=== PATIENT | male | born 1980 | race Caucasian/White ===

== ENCOUNTER → 2016-06-18 | Outpatient (CLI) | payer BC ==
[2016-06-18 12:01] LABS: CHLORIDE,CL 106 mmol/L (98-110); SODIUM,NA 140 mmol/L (136-146)
== END ==
LOC: MW.LAB 11:07
PROVIDERS: ATTEND Internal Medicine Rheumatology
DX: L40.59 Other psoriatic arthropathy (principal)
CPT/HCPCS: 36415; 80053; 85027; 85652; 86140

== ENCOUNTER 2016-07-06 09:52 | Emergency (ER) | payer BC ==
--- NOTE | 2016-07-06 11:03 | CT ---
EXAMINATION: CT lumbar spine without contrast HISTORY: Pain COMPARISON: MRI dated 08/12/2009 TECHNIQUE: Axial CT images obtained through the lumbar spine without contrast. FINDINGS: The lumbar spinal alignment is normal. The vertebral body heights appear maintained. There is minimal disc space narrowing at L5-S1. 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 The SI joints are symmetric. Bone mineralization is normal. There is likely a small diffuse disc bu lge with facet and ligamentum flavum hypertrophy noted at L4-L5 resulting in at least mild spinal ca nal stenosis. The visualized retroperitoneal structures appear normal. IMPRESSION: 1. Mild degenerative changes without acute findings.
--- NOTE | 2016-07-06 11:12 | EDM.PDOC ---
ED HPI GENERAL MEDICAL PROBLEM - General Chief Complaint: Back Pain or Injury Stated Complaint: BACK Time Seen by Provider: 07/06/16 10:20 Source of Information: Reports: Patient History Limitations: Reports: No Limitations - History of Present Illness INITIAL COMMENTS - FREE TEXT/NARRATIVE: History of present illness: [36-year-old male presenting with complaints of low back pain. Indicates history of injury in the lumbar spine with subsequent injections the latest and for several years but now he has had a flare today. Patient denies incontinence of bladder or bowel. Review of systems: As per history of present illness and below otherwise all systems reviewed and negative. Past medical history: As per history of present illness and as reviewed below otherwise noncontributory. Surgical history: As per history of present illness and as reviewed below otherwise noncontributory. Social history: No reported history of drug or alcohol abuse. Family history: As per history of present illness and as reviewed below otherwise noncontributory. Physical exam: HEENT: Atraumatic, normocephalic, pupils reactive, negative for conjunctival pallor or scleral icterus, mucous membranes moist, throat clear, neck supple, nontender, trachea midline. Lungs: Clear to auscultation, breath sounds equal bilaterally, chest nontender. Heart: S1S2, regular, negative for clicks, rubs, or JVD. Abdomen: Soft, nondistended, nontender. Negative for masses or hepatosplenomegaly. Negative for costovertebral tenderness. Pelvis: Stable nontender. Genitourinary: Deferred. Rectal: Deferred. Extremities: Atraumatic, negative for cords or calf pain. Neurovascular unremarkable. Neuro: Awake, alert, oriented. Cranial nerves II through XII unremarkable. Cerebellum unremarkable. Motor and sensory unremarkable throughout. Exam nonfocal. Global assessment is benign save his subjective complaint. Patient indicates that his pain is a 2/10 while lying. Diagnostics: [CT of the lumbar spine] Therapeutics: [] Impression: [Back pain] Plan: [norflex, medrol dose pack] Definitive disposition and diagnosis as appropriate pending reevaluation and review of above. low back pain Pain Score (Numeric/FACES): 10 - Related Data Allergies Allergy/AdvReac Type Severity Reaction Status Date / Time No Known Allergies Allergy Verified 07/06/16 09:59 Home Meds: Home Meds Folic Acid 0 mg PO DAILY 07/06/16 [History] Meloxicam 7.5 mg PO BID #30 tablet 07/06/16 [Rx] Methotrexate 0 mg PO WEEKLY 07/06/16 [History] Orphenadrine [Norflex] 100 mg PO BID #28 tab.er 07/06/16 [Rx] methylPREDNISolone [Medrol] 4 mg PO DAILY #21 tab.ds.pk 07/06/16 [Rx] Past Medical History - Past Health History Medical/Surgical History: Denies Medical/Surgical History HEENT History: Reports: Impaired Vision Other HEENT History: wears eyeglasses Musculoskeletal History: Reports: RA Endocrine/Metabolic History: Reports: Obesity/BMI 30+ - Past Surgical History GI Surgical History: Reports: Appendectomy Social & Family History - Family History Family Medical History: Noncontributory - Tobacco Use Smoking Status *Q: Never Smoker Second Hand Smoke Exposure: No - Caffeine Use Caffeine Use: Reports: None - Recreational Drug Use Recreational Drug Use: No ED ROS GENERAL - Review of Systems Review Of Systems: See Below (See history of present illness) ED EXAM,LOWER BACK PAIN/INJURY - Physical Exam Exam: See Below (See history of present illness) Course - Vital Signs Last Recorded V/S: Last Vital Signs Temp 36.3 C 07/06/16 10:00 Pulse 80 07/06/16 10:00 Resp 18 07/06/16 10:00 BP 139/83 07/06/16 10:00 Pulse Ox 98 07/06/16 10:00 Departure - Departure Time of Disposition: 11:10 Disposition: Home, Self-Care 01 Condition: good Clinical Impression: Lumbar back pain - Discharge Information Prescriptions: Meloxicam 7.5 mg PO BID #30 tablet Orphenadrine [Norflex] 100 mg PO BID #28 tab.er methylPREDNISolone [Medrol] 4 mg PO DAILY #21 tab.ds.pk Forms: ED Department Discharge Additional Instructions: The following information is given to patients seen in the emergency department who are being discharged to home. This information is to outline your options for follow-up care. We provide all patients seen in our emergency department with a follow-up referral. The need for follow-up, as well as the timing and circumstances, are variable depending upon the specifics of your emergency department visit. If you don't have a primary care physician on staff, we will provide you with a referral. We always advise you to contact your personal physician following an emergency department visit to inform them of the circumstance of the visit and for follow-up with them and/or the need for any referrals to a consulting specialist. The emergency department will also refer you to a specialist when appropriate. This referral assures that you have the opportunity for follow-up care with a specialist. All of these measure are taken in an effort to provide you with optimal care, which includes your follow-up. Under all circumstances we always encourage you to contact your private physician who remains a resource for coordinating your care. When calling for follow-up care, please make the office aware that this follow-up is from your recent emergency room visit. If for any reason you are refused follow-up, please contact the [facility] Emergency Department at and asked to speak to the emergency department charge nurse. Take medication as directed Followup with your primary care provider one to 2 days Return to ED as needed as discussed
[2016-07-06 11:32] VITALS: BP 132/84
== END 2016-07-06 11:30 | disposition home or self-care (01) ==
LOC: MW.ED 09:52
DX: M54.5 Low back pain (principal); E66.9 Obesity, unspecified; Z68.39 Body mass index [BMI] 39.0-39.9, adult; Z90.49 Acquired absence of other specified parts of digestive tract; Z79.899 Other long term (current) drug therapy
CPT/HCPCS: 72131; 72131-26; 99283-25; 99284

== ENCOUNTER 2018-08-09 05:03 | Emergency (ER) | payer BC ==
[2018-08-09] MEDS ORDERED: predniSONE 20 MG Tab PO ONE (05:37)
[2018-08-09] MEDS ORDERED: Ketorolac 60 MG/2 ML SDV IM ONE (05:37)
--- NOTE | 2018-08-09 05:38 | EDM.PDOC ---
ED HPI GENERAL MEDICAL PROBLEM - General Chief Complaint: Lower Extremity Injury/Pain Stated Complaint: GOUT IN RIGHT FOOT Time Seen by Provider: 08/09/18 05:37 Source of Information: Reports: Patient - History of Present Illness INITIAL COMMENTS - FREE TEXT/NARRATIVE: HISTORY AND PHYSICAL: History of present illness: [Patient presents with right right toe pain began yesterday insidiously he has had symptoms before consistent with gout but not formally diagnosed No injury or trauma no fever nausea vomiting chills sweats Review of systems: As per history of present illness and below otherwise all systems reviewed and negative. Past medical history: As per history of present illness and as reviewed below otherwise noncontributory. Surgical history: As per history of present illness and as reviewed below otherwise noncontributory. Social history: No reported history of drug or alcohol abuse. Family history: As per history of present illness and as reviewed below otherwise noncontributory. Physical exam: HEENT: Atraumatic, normocephalic, pupils reactive, negative for conjunctival pallor or scleral icterus, mucous membranes moist, throat clear, neck supple, nontender, trachea midline. Lungs: Clear to auscultation, breath sounds equal bilaterally, chest nontender. Heart: S1S2, regular, negative for clicks, rubs, or JVD. Abdomen: Soft, nondistended, nontender. Negative for masses or hepatosplenomegaly. Negative for costovertebral tenderness. Pelvis: Stable nontender. Genitourinary: Deferred. Rectal: Deferred. Extremities: Atraumatic, negative for cords or calf pain. Neurovascular unremarkable. Neuro: Awake, alert, oriented. Cranial nerves II through XII unremarkable. Cerebellum unremarkable. Motor and sensory unremarkable throughout. Exam nonfocal. Diagnostics: [CBC uric acid ] Therapeutics: [Total 60 IM Prednisone 20 mg by mouth now Prednisone0 mg #5 no refill Indomethacin Impression: [ acute gout ] Definitive disposition and diagnosis as appropriate pending reevaluation and review of above. r FOOT Pain Score (Numeric/FACES): 9 - Related Data Allergies Allergy/AdvReac Type Severity Reaction Status Date / Time No Known Allergies Allergy Verified 08/09/18 05:13 Home Meds: Home Meds Cider Vinegar [Apple Cider Vinegar] 300 mg PO DAILY 08/09/18 [History] Past Medical History - Past Health History Medical/Surgical History: Denies Medical/Surgical History HEENT History: Reports: Impaired Vision Other HEENT History: wears eyeglasses Musculoskeletal History: Reports: RA Other Musculoskeletal History: psoriatic arthritis Endocrine/Metabolic History: Reports: Obesity/BMI 30+ - Infectious Disease History Infectious Disease History: Reports: Chicken Pox - Past Surgical History GI Surgical History: Reports: Appendectomy Social & Family History - Family History Family Medical History: Noncontributory - Tobacco Use Smoking Status *Q: Never Smoker Second Hand Smoke Exposure: No - Caffeine Use Caffeine Use: Reports: Coffee, Energy Drinks, Soda, Tea - Recreational Drug Use Recreational Drug Use: No Review of Systems - Review of Systems Review Of Systems: See Below ED EXAM, GENERAL - Physical Exam Exam: See Below Course - Vital Signs Last Recorded V/S: Last Vital Signs Temp 96.5 F 08/09/18 05:11 Pulse 67 08/09/18 05:11 Resp 14 08/09/18 05:11 BP 146/91 H 08/09/18 05:11 Pulse Ox 96 08/09/18 05:11 - Orders/Labs/Meds Labs: Laboratory Tests 08/09/18 08/09/18 Range/Units 05:35 05:35 WBC 6.87 (4.0-11.0) K/uL RBC 4.97 (4.50-5.90) M/uL Hgb 15.3 (13.0-17.0) g/dL Hct 44.3 (38.0-50.0) % MCV 89.1 (80.0-98.0) fL MCH 30.8 (27.0-32.0) pg MCHC 34.5 (31.0-37.0) g/dL RDW Std Deviation 41.3 (28.0-62.0) fl RDW Coeff of Rafael 13 (11.0-15.0) % Plt Count 166 (150-400) K/uL MPV 10.50 (7.40-12.00) fL Neut % (Auto) 56.6 (48.0-80.0) % Lymph % (Auto) 30.4 (16.0-40.0) % Brantley % (Auto) 10.3 (0.0-15.0) % Eos % (Auto) 2.0 (0.0-7.0) % Baso % (Auto) 0.7 (0.0-1.5) % Neut # (Auto) 3.9 (1.4-5.7) K/uL Lymph # (Auto) 2.1 (0.6-2.4) K/uL Brantley # (Auto) 0.7 (0.0-0.8) K/uL Eos # (Auto) 0.1 (0.0-0.7) K/uL Baso # (Auto) 0.1 (0.0-0.1) K/uL Nucleated RBC % 0.0 /100WBC Nucleated RBCs # 0 K/uL Uric Acid 7.5 H (2.6-7.2) mg/dL Meds: Medications Discontinued Medications Generic Name Dose Route Start Last Admin Trade Name Freq PRN Reason Stop Dose Admin Ketorolac Tromethamine 60 mg 08/09/18 05:37 08/09/18 06:05 Toradol IM 08/09/18 05:38 60 mg ONETIME ONE Administration Prednisone 20 mg 08/09/18 05:37 08/09/18 06:05 Prednisone PO 08/09/18 05:38 20 mg ONETIME ONE Administration Departure - Departure Time of Disposition: 06:24 Disposition: Home, Self-Care 01 Condition: Good Clinical Impression: Acute gout - Discharge Information Referrals: Homero Barajas MD [Primary Care Provider] - Forms: ED Department Discharge Additional Instructions: The following information is given to patients seen in the emergency department who are being discharged to home. This information is to outline your options for follow-up care. We provide all patients seen in our emergency department with a follow-up referral. The need for follow-up, as well as the timing and circumstances, are variable depending upon the specifics of your emergency department visit. If you don't have a primary care physician on staff, we will provide you with a referral. We always advise you to contact your personal physician following an emergency department visit to inform them of the circumstance of the visit and for follow-up with them and/or the need for any referrals to a consulting specialist. The emergency department will also refer you to a specialist when appropriate. This referral assures that you have the opportunity for follow-up care with a specialist. All of these measure are taken in an effort to provide you with optimal care, which includes your follow-up. Under all circumstances we always encourage you to contact your private physician who remains a resource for coordinating your care. When calling for follow-up care, please make the office aware that this follow-up is from your recent emergency room visit. If for any reason you are refused follow-up, please contact the [facility] emergency department at and asked to speak to the emergency department charge nurse.
[2018-08-09 06:58] VITALS: BP 153/105
== END 2018-08-09 06:52 | disposition home or self-care (01) ==
LOC: MW.ED 05:03
DX: M10.9 Gout, unspecified (principal); Z79.899 Other long term (current) drug therapy
CPT/HCPCS: 36415; 84550; 85025; 96372; 99283; A9270; J1885

== ENCOUNTER 2021-03-08 19:33 | Observation (INO) | payer BC ==
[2021-03-08] MEDS ORDERED: Nitroglycerin 0.4 MG Tab.SL SL PRN (19:35)
[2021-03-08] MEDS ORDERED: Famotidine 20 MG/2 ML SDV IVPUSH ONE (19:35)
[2021-03-08] MEDS ORDERED: Aspirin 81 MG Tab.Chew PO ONE (19:35)
[2021-03-08] MEDS ORDERED: Alum Hydro/Mag Hydro/Simeth XS 15 ML, Lidocaine 2% 5 ML PO ONE ×2 (19:37)
[2021-03-08 20:17] LABS: BLOOD UREA NITROGEN,BUN 15 mg/dL (7.0-18.0); CHLORIDE,CL 100 mmol/L (98-107); GLUCOSE RANDOM 104 mg/dL (74-106); LIPASE 117 U/L (73-393); POTASSIUM,K 3.5 mmol/L (3.5-5.1); SODIUM,NA 139 mmol/L (136-148)
[2021-03-08] MEDS ORDERED: Morphine 4 MG/ML VIAL IVPUSH ONE (20:24)
[2021-03-08] MEDS ORDERED: HYDROmorphone 1 MG/ML Syringe IVPUSH ONE ×2 (21:04→22:51)
[2021-03-08] MEDS ORDERED: Iopamidol 755 MG/ML 500 ML Multipack Bottle IVPUSH ONE (21:39)
[2021-03-09] MEDS ORDERED: HYDROmorphone 1 MG/ML Syringe IVPUSH ONE (00:43)
[2021-03-09] MEDS ORDERED: Albuterol/Ipratropium 3.0-0.5 MG/3 ML Neb Soln NEB PRN (01:25)
[2021-03-09] MEDS ORDERED: Acetaminophen 325 MG Tab PO PRN (01:25)
[2021-03-09] MEDS ORDERED: Ondansetron 4 MG/2 ML SDV IVPUSH PRN (01:25)
[2021-03-09] MEDS ORDERED: HYDROmorphone 2 MG/ML Syringe IVPUSH PRN (01:25)
[2021-03-09] MEDS ORDERED: Sodium Chloride 0.9% 2.5 ML Syringe FLUSH PRN (08:10)
[2021-03-09] MEDS ORDERED: Sodium Chloride 0.9% 10 ML Syringe FLUSH PRN (08:10)
[2021-03-09] MEDS ORDERED: Pantoprazole 40 MG in Sodium Chloride 0.9% 10 ML IVPUSH SCH (09:00)
[2021-03-09 14:59] VITALS: BP 146/91; PULSE 74
== END 2021-03-09 14:58 | disposition home or self-care (01) ==
LOC: MW.ED 19:33 → MW.MS 03-09 00:11
PROVIDERS: ADMIT Student in an Organized Health Care Education/Training Program; ATTEND Student in an Organized Health Care Education/Training Program
DX: R07.9 Chest pain, unspecified (principal); K80.70 Calculus of gallbladder and bile duct without cholecystitis without obstruction; R10.13 Epigastric pain; E66.9 Obesity, unspecified; L40.50 Arthropathic psoriasis, unspecified; D84.821 Immunodeficiency due to drugs; Z79.899 Other long term (current) drug therapy; Z90.49 Acquired absence of other specified parts of digestive tract; Z20.822 Contact with and (suspected) exposure to COVID-19
CPT/HCPCS: 36415; 71045; 71275; 74174; 76705; 80053; 80061; 81003; 83036; 83690; 83735; 84439; 84443; 84484; 85025; 85379; 87635; 93005; 96374; 96375; 96376; 99285; A9270; C9113; G0378; J1170; J2270; J3490; Q9967; U0002

== ENCOUNTER 2021-04-15 09:32 | Day surgery (SDC) | payer BC ==
[~2021-04-15 09:32] MED LIST: Acetaminophen 1,000 MG in Premix Bag 1 BAG IV SCH; Albuterol 0.083% 2.5 MG/3 ML Neb Soln NEB PRN; HYDROmorphone 1 MG/ML Syringe IVPUSH PRN; Lactated Ringers 1,000 ML IV SCH; Metoclopramide 10 MG/2 ML SDV IVPUSH PRN; Morphine 4 MG/ML VIAL IVPUSH PRN; Naloxone 0.4 MG/ML SDV IVPUSH PRN; Ondansetron 4 MG/2 ML SDV IVPUSH PRN; Pregabalin 75 MG Cap PO SCH; cefOXitin 2 GM in Premix Bag 1 BAG IV SCH; fentaNYL 100 MCG/2 ML SDV IVPUSH PRN
[2021-04-15] MEDS ORDERED: Propofol 200 MG/20 ML SDV ONE (09:42)
[2021-04-15] MEDS ORDERED: fentaNYL 250 MCG/5 ML SDV ONE (09:43)
[2021-04-15] MEDS ORDERED: Midazolam 1 MG/ML 2 ML SDV ONE (09:43)
[2021-04-15] MEDS ORDERED: Ondansetron 4 MG/2 ML SDV ONE (09:44)
[2021-04-15] MEDS ORDERED: Sugammadex Sodium 200 MG/2 ML VIAL ONE (09:44)
[2021-04-15] MEDS ORDERED: Rocuronium Bromide 50 MG/5 ML Syringe ONE (09:44)
[2021-04-15] MEDS ORDERED: cefOXitin 1 GM Vial ONE (10:26)
[2021-04-15] MEDS ORDERED: Scopolamine 1.5 MG Transdermal Patch ONE (11:11)
[2021-04-15] MEDS ORDERED: Octyl 2-Cyanoacrylate 1 Tube ONE (11:26)
[2021-04-15] MEDS ORDERED: Bupivacaine 0.5% 30 ML SDV ONE (11:26)
[2021-04-15] MEDS ORDERED: Bupivacaine 0.25% 10 ML SDV ONE (11:33)
[2021-04-15] MEDS ORDERED: Glycopyrrolate 0.2 MG/ML SDV ONE ×2 (12:16→12:18)
[2021-04-15] MEDS ORDERED: ePHEDrine 50 MG/ML SDV ONE (12:16)
[2021-04-15] MEDS ORDERED: Acetaminophen/HYDROcodone 325-5 MG Tab PO ONE (14:52)
[2021-04-15 14:56] VITALS: BP 156/83; PULSE 79
[2021-04-15] MEDS ORDERED: Acetaminophen/HYDROcodone 325-5 MG Tab ONE (14:56)
== END 2021-04-15 15:20 | disposition home or self-care (01) ==
LOC: MW.SDS 09:32
PROVIDERS: ATTEND Surgery
DX: K80.10 Calculus of gallbladder with chronic cholecystitis without obstruction (principal); E66.9 Obesity, unspecified; Z79.899 Other long term (current) drug therapy; Z90.49 Acquired absence of other specified parts of digestive tract; Z98.890 Other specified postprocedural states; Z68.36 Body mass index [BMI] 36.0-36.9, adult
CPT/HCPCS: 00790; A9270-GY; J0131; J0694; J2250; J2370; J2405; J2704; J3010; J3490; J7120

== ENCOUNTER 2022-05-19 12:30 | Day surgery (SDC) | payer BC ==
[~2022-05-19 12:30] MED LIST changes: -Acetaminophen 1,000 MG in Premix Bag 1 BAG IV SCH; -Albuterol 0.083% 2.5 MG/3 ML Neb Soln NEB PRN; -HYDROmorphone 1 MG/ML Syringe IVPUSH PRN; -Metoclopramide 10 MG/2 ML SDV IVPUSH PRN; -Morphine 4 MG/ML VIAL IVPUSH PRN; -Naloxone 0.4 MG/ML SDV IVPUSH PRN; -Ondansetron 4 MG/2 ML SDV IVPUSH PRN; -Pregabalin 75 MG Cap PO SCH; -cefOXitin 2 GM in Premix Bag 1 BAG IV SCH; -fentaNYL 100 MCG/2 ML SDV IVPUSH PRN
[2022-05-19] MEDS ORDERED: Propofol 200 MG/20 ML SDV ONE ×2 (14:07→14:20)
[2022-05-19] MEDS ORDERED: Lidocaine 2% 5 ML SDV ONE (14:07)
[2022-05-19 15:30] VITALS: BP 130/87; PULSE 66
== END 2022-05-19 15:22 | disposition home or self-care (01) ==
LOC: MW.SDS 12:30
PROVIDERS: ATTEND Surgery
DX: Z12.11 Encounter for screening for malignant neoplasm of colon (principal); D12.3 Benign neoplasm of transverse colon; K62.1 Rectal polyp; K21.9 Gastro-esophageal reflux disease without esophagitis; E66.01 Morbid (severe) obesity due to excess calories; Z79.899 Other long term (current) drug therapy; Z20.822 Contact with and (suspected) exposure to COVID-19; Z90.49 Acquired absence of other specified parts of digestive tract; Z80.0 Family history of malignant neoplasm of digestive organs; F17.200 Nicotine dependence, unspecified, uncomplicated; Z68.37 Body mass index [BMI] 37.0-37.9, adult
CPT/HCPCS: 43239; 45380; J2704; J7120; 00813; J3490

== ENCOUNTER 2023-07-10 17:37 | Emergency (ER) | payer BC ==
[2023-07-10] MEDS: Codeine/Promethazine 10-6.25 MG/5 ML Syrup 5 ML UD Syringe PO STA (18:13)
[2023-07-10] MEDS: Sodium Chloride 0.9% 1,000 ML IV ONE (18:14)
[2023-07-10 18:16] LABS: BASOPHILS PERCENT AUTO 1.1 % (0.0-1.0); EOSINOPHILS ABSOLUTE AUTO 0.19 K/uL (0.00-0.45); EOSINOPHILS PERCENT AUTO 2.1 % (0.0-6.0); HEMATOCRIT 49.2 % (42.0-52.0); IMMATURE GRAN ABSOLUTE AUTO 0.04 K/uL (0.00-0.05); IMMATURE GRAN PERCENT AUTO 0.4 % (0.0-0.4); LYMPHOCYTES ABSOLUTE AUTO 2.65 K/uL (1.00-4.80); LYMPHOCYTES PERCENT AUTO 29.8 % (24.0-44.0); MEAN CORPUSCULAR HEMOGLOBIN 32.4 pg (28.0-32.0); MEAN CORPUSCULAR HGB CONC 36.6 g/dL (32.0-36.0); MEAN CORPUSCULAR VOLUME 88.6 fL (83.0-99.0); MEAN PLATELET VOLUME 9.8 fL (9.4-12.4); MONOCYTES ABSOLUTE AUTO 0.84 K/uL (0.00-0.80); MONOCYTES PERCENT AUTO 9.4 % (0.0-8.0); NEUTROPHILS ABSOLUTE AUTO 5.08 K/uL (1.80-7.70); NEUTROPHILS PERCENT AUTO 57.2 % (41.0-71.0); PLATELET COUNT,PLT 164 K/uL (150-400); RED BLOOD CELL COUNT 5.55 M/uL (4.52-5.90)
[2023-07-10 18:53] LABS: A/G RATIO 0.9 (0.9-1.6); ALBUMIN 3.4 g/dL (3.4-5.0); BILIRUBIN TOTAL 0.8 mg/dL (0.2-1.0); CALCIUM 8.6 mg/dL (8.5-10.1); CARBON DIOXIDE,CO2 30.4 mmol/L (21.0-32.0); CREATININE 1.3 mg/dL (0.8-1.3); EST CRCL DRUG DOSING (CG) 83.43 mL/min; POTASSIUM,K 3.8 mmol/L (3.5-5.1); PROTEIN TOTAL,TP 7.1 g/dL (6.4-8.2)
[2023-07-10 19:01] LABS: CORONAVIRUS COVID-19 NAA NEGATIVE (NEGATIVE); INFLUENZA A NAA NEGATIVE (NEGATIVE); INFLUENZA B NAA NEGATIVE (NEGATIVE)
[2023-07-10] MEDS: Azithromycin 250 MG Tab PO STA (19:35)
[2023-07-10 19:48] VITALS: BP 161/101; PULSE 78
== END 2023-07-10 19:47 | disposition home or self-care (01) ==
LOC: MW.ED 17:37
DX: J20.9 Acute bronchitis, unspecified (principal); I10 Essential (primary) hypertension; Z79.899 Other long term (current) drug therapy; Z75.8 Other problems related to medical facilities and other health care
CPT/HCPCS: 0240U; 36415; 71045; 80053; 84484; 85025; 93005; 96360; 99285; A9270; J7030; 93010; 99283; J3490